=== PATIENT | male | born 1965 | race African-American/Black ===

== ENCOUNTER 2018-07-28 09:53 | Emergency (ER) | payer SELFPAY ==
[~2018-07-28] VITALS: Ht 185.4 cm; Wt 102.1 kg
--- NOTE | 2018-07-28 10:07 | Emergency Room Report ---
History of Present Illness General Chief Complaint: To Be Triaged Source: Patient Present Illness HPI 52-year-old male with no medical problems presents with epigastric sharp pain started when he woke up this morning, developed 3 episodes of vomiting with associated nausea, vomited food, then he started developing the low midsternal nonradiating chest pain that was sharp as well, he still has epigastric sharp pain, he tried Pepto-Bismol without relief. He denies fevers or chills, dark stools, shortness of breath, fevers chills, lower abdominal pain, genitourinary complaints, back pain, syncope, leg pain, leg swelling, recent travel, and reports he is not tried to eat anything today. Allergies: Coded Allergies: No Known Allergies (Unverified , 07/28/18) Patient History Past Medical History: see triage record Reviewed Nursing Documentation: PMH: Agreed; PSxH: Agreed Review of Systems All Other Systems: negative except mentioned in HPI Physical Exam Sp02 EP Interpretation: reviewed, normal General Appearance: no apparent distress, alert, non-toxic Head: normocephalic Eyes: bilateral eye normal inspection, bilateral eye PERRL, bilateral eye EOMI ENT: normal ENT inspection, hearing grossly normal, normal pharynx, no angioedema, normal voice, moist mucus membranes Neck: normal inspection, full range of motion, supple, supple/symm/no masses Respiratory: chest non-tender, lungs clear, normal breath sounds, chest symmetrical, palpation of chest normal Cardiovascular #1: normal peripheral pulses, regular rate, rhythm Cardiovascular #2: 2+ radial (R), 2+ radial (L), 2+ dorsalis pedis (R), 2+ dorsalis pedis (L) Gastrointestinal: normal inspection, non tender, soft, no mass, no guarding, no rebound Rectal: deferred Genitourinary: normal inspection, no CVA tenderness Musculoskeletal: back normal, gait/station normal, normal range of motion, non- tender, no calf tenderness Neurologic: alert, responsive, interface analyst III-XII nml as tested, motor strength/tone normal, sensory intact, speech normal Psychiatric: judgement/insight normal, memory normal, mood/affect normal, no suicidal/homicidal ideation Skin: normal color, no rash, warm/dry, normal turgor Lymphatic: no adenopathy Medical Decision Making Diagnostic Impression: Primary Impression: Chest pain ER Course Patient with epigastric pain and chest pain, workup fairly unremarkable, including serial cardiac enzymes, he has no risk factors for acute coronary syndrome, normal pulse exam, normal guarding his house, do not suspect dissection, do not suspect PE, workup 3 unremarkable we'll discharge home with follow-up with PMD, did receive some relief with Pepcid, will give the same. EKG Diagnostic Results EKG Time: 10:00 EP Interpretation: no st-t changes, no twi's Rate: normal Rhythm: NSR ST Segments: no acute changes ASA given to the pt in ED: Yes Rhythm Strip Diag. Results Rhythm Strip Time: 10:07 EP Interpretation: yes Rate: 60 Rhythm: NSR, no PVC's, no ectopy Chest X-Ray Diagnostic Results Chest X-Ray Diagnostic Results : Chest X-Ray Ordered: Yes # of Views/Limited/Complete: 1 View Indication: Chest Pain EP Interpretation: Yes Interpretation: no consolidation, no effusion, no pneumothorax, no acute cardiopulmonary disease Impression: No acute disease Electronically Signed by: Rober Crenshaw MD Disposition: HOME, SELF-CARE Condition: Stable Scripts No Active Prescriptions or Reported Meds ROBER CRENSHAW M.D Jul 28, 2018 10:07
[2018-07-28 10:11] VITALS: BP 146/80
[2018-07-28 10:30] LABS: BASOPHILS % (AUTO) 0.7 % (0.0-2.0); EOSINOPHILS % (AUTO) 0.3 % (0.0-3.0); HEMATOCRIT 44.8 % (42.0-52.0); LYMPHOCYTES % (AUTO) 14.2 % (20.0-45.0); MEAN CORPUSCULAR VOLUME 86 FL (80-99); MONOCYTES % (AUTO) 4.8 % (1.0-10.0); PLATELET COUNT 244 K/UL (150-450); RED BLOOD COUNT 5.18 M/UL (4.70-6.10); RED CELL DISTRIBUTION WIDTH 12.1 % (11.6-14.8)
[2018-07-28 10:45] LABS: ANION GAP 9 mmol/L (5-15); BLOOD UREA NITROGEN 14 mg/dL (7-18); CALCIUM 9.9 MG/DL (8.5-10.1); CARBON DIOXIDE 27 MMOL/L (21-32); CHLORIDE 102 MMOL/L (98-107); CREATININE 1.2 MG/DL (0.55-1.30); POTASSIUM 3.6 MMOL/L (3.5-5.1); SODIUM 138 MMOL/L (136-145)
[2018-07-28 10:51] LABS: ALANINE AMINOTRANSFERASE 28 U/L (12-78); ALBUMIN 3.6 G/DL (3.4-5.0); ALBUMIN/GLOBULIN RATIO 0.8 (1.0-2.7); ALKALINE PHOSPHATASE 84 U/L (46-116); ASPARTATE AMINO TRANSFERASE 22 U/L (15-37); BILIRUBIN,TOTAL 0.3 MG/DL (0.2-1.0)
[2018-07-28] MEDS ORDERED: Aspirin EC 81mg tab ORAL SCH ×2 (11:00)
--- NOTE | 2018-07-28 11:58 | Diagnostic Imaging Report ---
Indication: Chest pain Comparison: None A single view chest radiograph was obtained. Findings: Cardiomediastinal appearance is within normal limits for age. The lungs are clear. Pulmonary vascularity is appropriate. The diaphragmatic contour is smooth and costophrenic angles are sharp. No pleural effusions are identified. The bones are unremarkable. Impression: No acute findings
[2018-07-28 12:45] VITALS: BP 132/80
[2018-07-28 12:49] VITALS: BP 146/80
--- NOTE | 2018-07-30 12:06 | Cardiology Report ---
APPROVED REPORT EKG Measurement Heart [id number] Sinus bradycardia Otherwise normal ECG
== END 2018-07-28 13:08 | disposition home or self-care (01) ==
LOC: EMR 10:20
DX: R07.9 Chest pain, unspecified (principal)
CPT/HCPCS: 36415; 71045; 80053; 83690; 84484; 85025; 93005; 96374; 99284; S0028